=== PATIENT | male | born 1950 | race African-American/Black ===

== ENCOUNTER → 2017-05-21 | Outpatient (CLI) | payer MEDICAID, OTHER ==
[~2017-05-21] MED LIST: AMLODIPINE BESY10 MG PO; ASPIR-LOW81 MG PO; CARDURA4 MG PO; CHANTIX0.5 MG PO; KLOR-CON 1010 MEQ PO; LEVEMIR SUBQ; METFORMIN HCL500 MG PO; MUCINEX TA600 MG/TA2 PO; OXYCONTIN10 M1 PO; PRINIVIL20 MG PO; VIAGRA100 MG PO; VITAMIN B-12500 MCG PO; VITAMIN D 5050000 I1 PO
== END ==
LOC: OPONC 06:35
DX: B99.9 Unspecified infectious disease (principal)
CPT/HCPCS: 95000

== ENCOUNTER → 2017-05-22 | Outpatient (CLI) | payer OTHER | LOC: OPONC 05-21 16:42 | DX: B99.9 Unspecified infectious disease (principal) | CPT/HCPCS: 95000 ==

== ENCOUNTER → 2017-05-23 | Outpatient (CLI) | payer OTHER, MEDICAID ==
[2017-05-23 15:23] VITALS: BP 138/84
== END ==
LOC: OPONC 00:22
DX: B99.9 Unspecified infectious disease (principal)
CPT/HCPCS: 95000